=== PATIENT | male | born 1950 | race Caucasian/White ===

== ENCOUNTER 2017-06-25 19:38 | Emergency (ER) | payer BC ==
[2005-04-30 06:35] VITALS: BP 137/90
[~2017-06-25] VITALS: Wt 84.1 kg
[~2017-06-25 19:38] MED LIST: CARDIZEM CD 24240 MG PO; HCTZ 25MG TAB25 MG PO; KLOR-CON M2020 MEQ PO; NORCO 325 MG-7.1 TAB PO; PREDNISONE20 MG PO
[2017-06-25 20:06] VITALS: BP 160/80; TEMP 98.1
[2017-06-25 20:44] VITALS: PULSE 63
== END 2017-06-25 20:44 | disposition home or self-care (01) ==
LOC: COL.ER 19:38
DX: S81.012A Laceration without foreign body, left knee, initial encounter (principal); Z86.2 Personal history of diseases of the blood and blood-forming organs and certain disorders involving the immune mechanism; Z23 Encounter for immunization; Z79.52 Long term (current) use of systemic steroids; W29.0XXA Contact with powered kitchen appliance, initial encounter; Y92.009 Unspecified place in unspecified non-institutional (private) residence as the place of occurrence of the external cause

== ENCOUNTER → 2017-09-22 | Outpatient (CLI) | payer BC | LOC: COL.LAB 16:37 | DX: Z01.89 Encounter for other specified special examinations (principal) ==

== ENCOUNTER 2017-09-25 10:35 | Day surgery (SDC) | payer BC ==
[2017-09-22 17:03] LABS: HEMATOCRIT 39.2 % (42.0-52.0); HEMOGLOBIN 13.9 g/dl (13.5-18.0); MEAN CELL VOLUME 91 fl (80.0-100.0); MEAN CORPUSCULAR HEMOGLOBIN 32 pg (27.0-31.0); MEAN CORPUSCULAR HGB CONC 36 g/dl (33.0-37.0); MEAN PLATELET VOLUME 10.6 fl (7.4-10.4); RED BLOOD COUNT 4.29 M/mm3 (4.20-5.60); REDCELL DISTRIBUTION WIDTH-CV 13.1 % (11.5-14.5)
[2017-09-22 17:11] LABS: PLATELET COUNT 42 K/mm3 (130-400)
[2017-09-22 17:23] LABS: ALBUMIN 3.9 gm/dL (3.5-5.0); BILIRUBIN,TOTAL 1.5 mg/dL (0.0-1.0); CALCIUM 9.5 mg/dL (8.4-10.2); CREATININE, serum 1.09 mg/dL (0.66-1.25); POTASSIUM 3.5 mmol/L (3.4-5.0); TOTAL PROTEIN 6.8 gm/dL (6.4-8.2)
[~2017-09-25] VITALS: Ht 172.7 cm; Wt 82.6 kg
[2017-09-25] VITALS (10 sets, daily range): BP systolic 114–139; BP diastolic 69–97; PULSE 55–93; TEMP 97.5–97.8
[2017-09-25] MEDS ORDERED: COZAAR 50MG50 MG/TAB PO (11:02)
== END 2017-09-25 18:45 | disposition home or self-care (01) ==
LOC: SURG 10:35 → SDCO 10:35
PROVIDERS: Surgery
DX: K40.30 Unilateral inguinal hernia, with obstruction, without gangrene, not specified as recurrent (principal); K40.90 Unilateral inguinal hernia, without obstruction or gangrene, not specified as recurrent; I10 Essential (primary) hypertension; D69.6 Thrombocytopenia, unspecified; B35.1 Tinea unguium; Z88.8 Allergy status to other drugs, medicaments and biological substances; Z90.49 Acquired absence of other specified parts of digestive tract; Z87.891 Personal history of nicotine dependence; Z80.0 Family history of malignant neoplasm of digestive organs; Z82.49 Family history of ischemic heart disease and other diseases of the circulatory system; Z83.3 Family history of diabetes mellitus
CPT/HCPCS: OP; A4314; C1781; J0690; J1100; J1885; J2405; J2704; J3010; J7120; P9035

== ENCOUNTER → 2023-09-29 | Outpatient (CLI) | payer MEDICARE, OTHER ==
[~2023-09-29] MED LIST changes: +COZAAR 50MG50 MG/TAB PO
== END ==
LOC: MHCPAIN 10:43
DX: M54.50 Low back pain, unspecified (principal); M43.16 Spondylolisthesis, lumbar region; M47.816 Spondylosis without myelopathy or radiculopathy, lumbar region
CPT/HCPCS: G0463

== ENCOUNTER → 2023-11-10 | Outpatient (CLI) | payer MEDICARE, OTHER | LOC: MHCPAIN 10:12 | DX: M54.16 Radiculopathy, lumbar region (principal); M48.061 Spinal stenosis, lumbar region without neurogenic claudication; M47.816 Spondylosis without myelopathy or radiculopathy, lumbar region; M51.36 Other intervertebral disc degeneration, lumbar region | CPT/HCPCS: G0463 ==